=== PATIENT | female | born 1965 | race Caucasian/White ===

== ENCOUNTER 2018-03-11 21:06 | Emergency (ER) | payer BC ==
[~2018-03-11] VITALS: Ht 165.1 cm; Wt 78.9 kg
[~2018-03-11 21:06] MED LIST: CEFTIN500 MG PO; IBUPROFEN 600600 M1 PO; NORCO 5-325 TA1 EACH PO; PRAVACHOL40 MG PO; PRILOSEC40 MG PO; SYNTHROID88 MCG PO; [UNRECOGNIZED DRUG - REMARK]
[2018-03-11 21:52] LABS: INFLUENZA A ANTIGEN None Detected (None Detect)
[2018-03-11] MEDS ORDERED: TUSSIN100 MG/5 M PO (21:57)
[2018-03-11] MEDS ORDERED: VENTOLIN HFA 1818 GM INH (21:57)
[2018-03-11 22:05] VITALS: BP 142/77
== END 2018-03-11 22:08 | disposition home or self-care (01) ==
LOC: M.ERS 21:06
PROVIDERS: Nurse Practitioner Family
DX: J10.1 Influenza due to other identified influenza virus with other respiratory manifestations (principal); F17.200 Nicotine dependence, unspecified, uncomplicated; K21.9 Gastro-esophageal reflux disease without esophagitis; L40.9 Psoriasis, unspecified; Z88.6 Allergy status to analgesic agent; Z88.1 Allergy status to other antibiotic agents; Z88.5 Allergy status to narcotic agent; Z88.2 Allergy status to sulfonamides; Z88.8 Allergy status to other drugs, medicaments and biological substances; Z90.710 Acquired absence of both cervix and uterus; Z90.89 Acquired absence of other organs

== ENCOUNTER 2020-08-08 14:16 | Emergency (ER) | payer OTHER ==
[~2020-08-08] VITALS: Ht 165.1 cm; Wt 68.0 kg
[~2020-08-08 14:16] MED LIST changes: +TUSSIN100 MG/5 M PO; +VENTOLIN HFA 1818 GM INH
[2020-08-08] MEDS ORDERED: NURTEC ODT75 MG PO (14:35)
[2020-08-08] MEDS ORDERED: VITAMIN D21250 MCG PO (14:38)
[2020-08-08] MEDS ORDERED: BIOTIN1 M1 PO (14:38)
[2020-08-08] MEDS ORDERED: CLEOCIN HCL150 MG PO (15:01)
[2020-08-08] MEDS ORDERED: DIFLUCAN100 MG PO (15:01)
[2020-08-08] MEDS ORDERED: NORCO5 PO ×2 (15:01→15:04)
[2020-08-08 15:10] VITALS: BP 132/64
== END 2020-08-08 15:11 | disposition home or self-care (01) ==
LOC: M.ERS 14:16
DX: B37.2 Candidiasis of skin and nail (principal); L40.9 Psoriasis, unspecified; G43.909 Migraine, unspecified, not intractable, without status migrainosus; K21.9 Gastro-esophageal reflux disease without esophagitis; Z88.6 Allergy status to analgesic agent; Z88.1 Allergy status to other antibiotic agents; Z88.2 Allergy status to sulfonamides; Z88.5 Allergy status to narcotic agent; Z90.710 Acquired absence of both cervix and uterus; Z87.440 Personal history of urinary (tract) infections